=== PATIENT | female | born 1990 | race African-American/Black ===

== ENCOUNTER 2016-05-13 13:12 | Emergency (ER) | payer SELFPAY ==
--- NOTE | 2016-05-13 13:51 | ER Document Report ---
ED Medical Screen (RME) - General Stated Complaint: ABDOMINAL PAIN Notes: back pain and abdominal pain for the past two days. her last menstrual period was march. vaginal bleeding started last night, she believes she passed some white tissue she states she took a test on monday that was negative I have greeted and performed a rapid initial assessment of this patient. A comprehensive ED assessment and evaluation of the patient, analysis of test results and completion of the medical decision making process will be conducted by additional ED providers.
[2016-05-13 15:14] LABS: HEMATOCRIT 31.4 % (36.0-47.0); HEMOGLOBIN 9.9 g/dL (12.0-15.5); HGB HCT DIFFERENCE -1.7; MEAN CORPUSCULAR HEMOGLOBIN 21.6 pg (27.0-33.4); MEAN CORPUSCULAR HGB CONC 31.4 g/dL (32.0-36.0); MEAN CORPUSCULAR VOLUME 69 fl (80-97); RED BLOOD COUNT 4.57 10^6/uL (3.72-5.28); RED CELL DISTRIBUTION WIDTH 21.1 % (11.5-14.0); WHITE BLOOD COUNT 13.2 10^3/uL (4.0-10.5)
[2016-05-13 15:29] LABS: ALANINE AMINOTRANSFERASE 29 U/L (9-52); ALBUMIN 4.7 g/dL (3.5-5.0); ALKALINE PHOSPHATASE 77 U/L (38-126); ANION GAP 16 (5-19); ASPARTATE AMINO TRANSFERASE 17 U/L (14-36); BILIRUBIN,TOTAL 0.4 mg/dL (0.2-1.3); BLOOD UREA NITROGEN 11 mg/dL (7-20); CALCIUM 9.6 mg/dL (8.4-10.2); CARBON DIOXIDE 24 mmol/L (22-30); CHLORIDE 103 mmol/L (98-107); CREATININE RESULT 0.76 mg/dL (0.52-1.25); GLUCOSE 116 mg/dL (75-110); LIPASE 32.1 U/L (23-300); POTASSIUM 4.4 mmol/L (3.6-5.0); SODIUM 142.8 mmol/L (137-145); TOTAL PROTEIN 8.4 g/dL (6.3-8.2)
[2016-05-13 15:30] LABS: BASOPHILS % (MANUAL) 0 % (0-2); EOSINOPHILS % (MANUAL) 0 % (0-6); LYMPHOCYTES % (MANUAL) 5 % (13-45); TOTAL CELLS COUNTED 100
[2016-05-13 15:31] LABS: ANISOCYTOSIS 3+; HYPOCHROMASIA 1+; MICROCYTOSIS 2+; OVALOCYTES 2+; POIKILOCYTOSIS 2+
[2016-05-13] MEDS ORDERED: IBUPROFEN 800 MG TABLET PO ONE (17:43)
--- NOTE | 2016-05-13 18:34 | ER Document Report ---
ED GI/ - General Chief Complaint: Abdominal Pain Stated Complaint: ABDOMINAL PAIN Time seen by provider: 18:32 Mode of Arrival: Ambulatory Information source: Patient TRAVEL OUTSIDE OF THE [place] IN LAST 30 DAYS: No - HPI Patient complains to provider of: Abdominal pain, Dysuria, Vomiting Onset: Other - 2 days Timing/Duration: Persistent Quality of pain: Sharp, Stabbing Severity at maximum: Severe Severity in ED: Severe Pain Level: 5 Location: Suprapubic Vaginal bleeding (Compared to normal period): Similar Menstrual period history: Abnormal Associated symptoms: Dysuria, Nausea, Urinary hesitancy, Urinary frequency, Urinary urgency, Vomiting Exacerbated by: Denies Relieved by: Denies Similar symptoms previously: No Recently seen / treated by doctor: No Notes: 05/13/16 18:33 Patient is a 25-year-old female presenting to the emergency room complaining of sharp stabbing lower abdominal pain that started approximately 2 nights ago, she is pain in her low back as well, she reports it as stabbing or twisting in nature, she is also had nausea and vomiting since this morning, and urinary frequency, urgency and hesitancy, states she saw some white matter, with her urine stream, she denies any fever, no sick contacts, no recent travel, no history of any abdominal surgeries previously - Related Data Allergies/Adverse Reactions: No Known Allergies Allergy (Unverified 05/13/16 13:49) Past Medical History - General Information source: Patient - Social History Smoking Status: Never Smoker Chew tobacco use (# tins/day): No Frequency of alcohol use: None Drug Abuse: None Family History: Reviewed & Not Pertinent Patient has suicidal ideation: No Patient has homicidal ideation: No Renal/ Medical History: Denies: Hx Peritoneal Dialysis Review of Systems - Review of Systems Constitutional: No symptoms reported. denies: Fever EENT: No symptoms reported Cardiovascular: No symptoms reported Respiratory: No symptoms reported Gastrointestinal: See HPI Genitourinary: See HPI Female Genitourinary: Vaginal bleeding Musculoskeletal: No symptoms reported Skin: No symptoms reported Hematologic/Lymphatic: No symptoms reported Neurological/Psychological: No symptoms reported -: Yes All other systems reviewed and negative Physical Exam - Vital signs Vitals: Temp Pulse Resp BP Pulse Ox 97.7 F 77 26 H 113/76 96 05/13/16 13:49 05/13/16 13:49 05/13/16 13:49 05/13/16 13:49 05/13/16 13:49 Interpretation: Normal - General General appearance: Appears well, Alert - HEENT Head: Normocephalic, Atraumatic Eyes: Normal Pupils: PERRL - Respiratory Respiratory status: No respiratory distress Chest status: Nontender Breath sounds: Normal Chest palpation: Normal - Cardiovascular Rhythm: Regular Heart sounds: Normal auscultation Murmur: No - Abdominal Inspection: Normal Distension: No distension Bowel sounds: Normal Tenderness: Tender - Suprapubic Organomegaly: No organomegaly - Back Back: Normal, Nontender - Extremities General upper extremity: Normal inspection, Nontender, Normal color, Normal ROM , Normal temperature General lower extremity: Normal inspection, Nontender, Normal color, Normal ROM , Normal temperature, Normal weight bearing. No: Marce's sign - Neurological Neuro grossly intact: Yes Cognition: Normal Orientation: AAOx4 Shannan Coma Scale Eye Opening: Spontaneous [place]ann[place] Coma Scale Verbal: Oriented [place] Coma Scale Motor: Obeys Commands Shannan Coma Scale Total: 15 Speech: Normal Motor strength normal: LUE, RUE, LLE, RLE Sensory: Normal - Psychological Associated symptoms: Normal affect, Normal mood - Skin Skin Temperature: Warm Skin Moisture: Dry Skin Color: Normal Course - Re-evaluation Re-evalutation: 05/13/16 22:01 Lab and imaging findings were discussed with patient at bedside which are fairly unremarkable, patient was provided with pain medication and information for follow-up, advised to return if symptoms worsen, patient acknowledges understanding and agreement with this plan - Vital Signs Vital signs: Temp Pulse Resp BP Pulse Ox 97.7 F 77 26 H 113/76 96 05/13/16 13:49 05/13/16 13:49 05/13/16 13:49 05/13/16 13:49 05/13/16 13:49 - Laboratory Result Diagrams: 05/13/16 14:15 05/13/16 14:15 Laboratory results interpreted by me: 05/13/16 05/13/16 05/13/16 14:15 14:15 19:00 WBC 13.2 H Hgb 9.9 L Hct 31.4 L MCV 69 L MCH 21.6 L MCHC 31.4 L RDW 21.1 H Seg Neuts % (Manual) 94 H Lymphocytes % (Manual) 5 L Monocytes % (Manual) 1 L Abs Neuts (Manual) 12.4 H Glucose 116 H Total Protein 8.4 H Urine Protein 100 H Urine Ketones 80 H Urine Ascorbic Acid 40 H - Diagnostic Test Radiology reviewed: Image reviewed, Reports reviewed Discharge - Discharge Clinical Impression: Abdominal pain Qualifiers: Abdominal location: lower abdomen, unspecified Qualified Code(s): R10.30 - Lower abdominal pain, unspecified Condition: Stable Disposition: HOME, SELF-CARE Instructions: Antinausea Medication ([facility]), Oral Narcotic Medication ([facility]), Abdominal Pain ([facility]), Family Physicians / Practices, Gastroenterology Additional Instructions: Follow up with your primary care provider in one to 2 days. Return to the emergency room immediately if symptoms worsen or any additional concerns. Prescriptions: Hydrocodone/Acetaminophen [Hydrocodon-Acetaminophen 5-325] 1 each PO Q6 #20 tablet
[2016-05-13] MEDS ORDERED: TRAMADOL HCL 50 MG TABLET PO ONE (19:57)
[2016-05-13] MEDS ORDERED: ONDANSETRON 4 MG TAB.RAPDIS SL ONE (19:58)
[2016-05-13 20:16] LABS: APPEARANCE,URINE SLIGHTLY-CLOUDY; BILIRUBIN,URINE NEGATIVE (NEGATIVE); GLUCOSE, URINE NEGATIVE (NEGATIVE); KETONES,URINE 80 mg/dL (NEGATIVE); LEUKOCYTE ESTERASE,URINE NEGATIVE (NEGATIVE); NITRITE,URINE NEGATIVE (NEGATIVE); PROTEIN,URINE 100 mg/dL (NEGATIVE); URINE SPECIFIC GRAVITY 1.031; UROBILINOGEN,URINE NEGATIVE mg/dL (<2.0)
[2016-05-13] MEDS ORDERED: HYDROCODONE/ACETAMINOPHEN 5-325 MG 6 TAB/DSPK PO PRN (22:00)
[2016-05-13 23:42] VITALS: BP 115/73
== END 2016-05-13 22:15 | disposition home or self-care (01) ==
LOC: ER 13:12
DX: R10.30 Lower abdominal pain, unspecified (principal); R10.9 Unspecified abdominal pain; M54.5 Low back pain; R11.2 Nausea with vomiting, unspecified; R35.0 Frequency of micturition; R39.15 Urgency of urination; R39.11 Hesitancy of micturition
CPT/HCPCS: 99284; 36415; 84702; 83690; 85025; 80053; 81001; 74177; S0119